=== PATIENT | female | born 1985 | race Caucasian/White ===

== ENCOUNTER 2016-08-18 09:00 | Emergency (ER) | payer SELFPAY ==
[2016-08-18] MEDS ORDERED: LIDOCAINE 5% PATCH TOP ONE (09:14)
[2016-08-18] MEDS ORDERED: HYDROCODONE/APAP 7.5/325MG TABLET PO ONE (09:14)
[2016-08-18] MEDS ORDERED: IBUPROFEN 600 MG TABLET PO ONE (09:14)
--- NOTE | 2016-08-18 09:20 | Emergency Department Record ---
History of Present Illness - General Chief Complaint: Ankle/Foot Injury Stated Complaint: FELL YESTERDAY/ANKLE PAIN Time Seen by Provider: 08/18/16 09:13 Source: Patient Mode of Arrival: Ambulatory Limitations: No limitations - History of Present Illness Initial Comments: 30 yo female presents after a fall at work yesterday at [employer] [place]. 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 She was walking between buildings and slipped on wet snow. She landed on her tailbone and right ankle. No head injury. She has had increased pain since then. No other specific areas of pain or injury. No foot pain, knee pain. No numbness or tingling. MD Complaint: Ankle injury, Other (back/tailbone) Onset/Timin -: Days(s) Injury: Ankle: Right Type of Injury: Eversion Place: Street/outdoors Severity: Severe Severity scale (1-10): 10 Improves With: Nothing Worsens With: Nothing Context: Fall Associated Symptoms: Able to partially bear weight - Related Data Home Medications Medication Instructions Recorded Confirmed Last Taken Norethindrone-E.estradiol-Iron 1 tab PO DAILY #28 08/14/16 08/18/16 Unknown [Willie Fe 1.5-30 Tablet] Allergies Allergy/AdvReac Type Severity Reaction Status Date / Time No Known Drug Allergies Allergy Verified 08/18/16 09:08 Travel Screening - Travel/Exposure Within Last 30 Days Have you traveled within the last 30 days?: No Review of Systems Constitutional: Denies: Chills, Fever, Malaise, Weakness Eyes: Denies: Eye discharge ENT: Denies: Congestion, Throat pain Respiratory: Denies: Cough Cardiovascular: Denies: Chest pain, Palpitations, Syncope Endocrine: Denies: Fatigue Gastrointestinal: Denies: Abdominal pain, Diarrhea, Nausea, Vomiting Genitourinary: Denies: Dysuria, Incontinence, Retention, Urgency Musculoskeletal: Reports: As per HPI, Arthralgia, Back pain, Joint swelling. Denies: Myalgia, Neck pain Skin: Denies: Bruising, Change in color, Rash Neurological: Denies: Headache Psychiatric: Denies: Anxiety Hematological/Lymphatic: Denies: Blood Clots, Easy bleeding, Easy bruising, Swollen glands Past Medical History - SOCIAL HISTORY Smoking Status: Never smoker Alcohol Use: None Drug Use: None - RESPIRATORY Hx Respiratory Disorders: No - CARDIOVASCULAR Hx Cardio Disorders: No - NEURO Hx Neuro Disorders: No - GI Hx GI Disorders: No - Hx Genitourinary Disorders: No - ENDOCRINE Hx Endocrine Disorders: No - MUSCULOSKELETAL Hx Musculoskeletal Disorders: Yes Comment:: degen. discs, spinal stenosis - PSYCH Hx Psych Problems: Yes Hx Depression: Yes - HEMATOLOGY/ONCOLOGY Hx Hematology/Oncology Disorders: No Family Medical History Any Significant Family History?: Yes Hx Diabetes: Father, Mother Hx HTN: Mother Physical Exam - General General Appearance: Alert, Oriented x3, Cooperative, No acute distress Limitations: No limitations - Head Head exam: Atraumatic, Normal inspection - Eye Eye exam: Normal appearance, PERRL. negative: Conjunctival injection, Periorbital swelling - ENT ENT exam: Normal exam, Mucous membranes moist Ear exam: Normal external inspection Nasal Exam: Normal inspection Mouth exam: Normal external inspection Teeth exam: Normal inspection Throat exam: Normal inspection - Neck Neck exam: Normal inspection, Full ROM. negative: Tenderness - Respiratory Respiratory exam: Normal lung sounds bilaterally. negative: Accessory muscle use, Respiratory distress, Rhonchi, Stridor, Wheezes - Cardiovascular Cardiovascular Exam: Regular rate, Normal rhythm, Normal heart sounds - GI/Abdominal GI/Abdominal exam: Soft. negative: Tenderness - Rectal Rectal exam: Deferred - exam: Deferred - Extremities Extremities exam: Full ROM, Joint swelling (lateral ankle), Normal capillary refill, Tenderness (lateral ankle). negative: Normal inspection, Calf tenderness, Pedal edema Image of Feet: 1 - lateral ankle tenderness, mild swelling, non tender and intact achilles, non tender 5th MT, no bruising visualized. - Back Back exam: Reports: Normal inspection, Full ROM, Muscle spasm, Tenderness (low midline coccyx), Vertebral tenderness. Denies: CVA tenderness (R), CVA tenderness (L), Paraspinal tenderness, Rash noted Image of Body Front/Back: 1 - tender, no bruising - Neurological Neurological exam: Alert, Normal gait, Oriented X3, Reflexes normal. negative: Motor sensory deficit - Psychiatric Psychiatric exam: Normal affect, Normal mood - Skin Skin exam: Dry, Intact, Normal color, Warm Course Vital Signs 08/18/16 09:04 Temperature 98.0 F Pulse Rate 67 Respiratory 20 Rate Blood Pressure 199/130 Pulse Ox 97 - Reevaluation(s) Reevaluation #1: The XR was reviewed The final report was negative for acute fracture or injury The ankle demonstrates STS only She will be provided crutches and brace and work not for today 08/18/16 10:04 Disposition Disposition: Discharge Clinical Impression: Coccyx contusion Qualifiers: Encounter type: initial encounter Qualified Code(s): S30.0XXA - Contusion of lower back and pelvis, initial encounter Ankle sprain Qualifiers: Encounter type: initial encounter Involved ligament of ankle: unspecified ligament Laterality: right Qualified Code(s): S93.401A - Sprain of unspecified ligament of right ankle, initial encounter Disposition: Home, Self-Care Condition: (1) Good Instructions: Ankle Sprain (ED), Coccyx Injury (ED) Additional Instructions: Ice to any sore tender or bruised areas Call your doctor for close follow up 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
== END 2016-08-18 10:19 | disposition home or self-care (01) ==
LOC: ER 09:00
DX: S93.401A Sprain of unspecified ligament of right ankle, initial encounter (principal); S30.0XXA Contusion of lower back and pelvis, initial encounter; W00.0XXA Fall on same level due to ice and snow, initial encounter; Y92.63 Factory as the place of occurrence of the external cause; Y99.0 Civilian activity done for income or pay
CPT/HCPCS: 72220; 99283; 99284

== ENCOUNTER 2017-10-07 21:53 | Emergency (ER) | payer SELFPAY ==
[2017-10-07] MEDS ORDERED: ASPIRIN 81 MG CHEWABLE TABLET PO ONE (22:11)
--- NOTE | 2017-10-07 22:12 | Emergency Department Record ---
History of Present Illness - General Chief Complaint: Chest Pain Stated Complaint: CHEST PAIN Time Seen by Provider: 10/07/17 22:07 Source: Patient Mode of Arrival: Ambulatory Limitations: No limitations - History of Present Illness Initial Comments: 31 yo female presents to ED for evaluation of chest pain to the left chest that began while walking out doors this evening. Patient reports that she "just didn 't feel right" after returning home, came to ED for evaluation. Patient denies fevers, chills, or history of DVT. Patient denies history of OCP's. Patient denies health problems at her baseline, and denies previous heart or lung problems. MD Complaint: Chest pain Onset: During exertion Pain Location: Left chest Pain Radiation: LUE Severity: Moderate Quality: Aching Consistency: Intermittent Improves With: Rest Worsens With: Nothing Treatments Prior to Arrival: None - Related Data On Oral Contraceptives: No Allergies Allergy/AdvReac Type Severity Reaction Status Date / Time No Known Drug Allergies Allergy Unverified 01/04/17 14:26 Review of Systems Constitutional: Denies: Chills, Fever, Malaise, Night sweats Eyes: Denies: Eye discharge, Eye pain ENT: Denies: Congestion, Ear pain, Epistaxis Respiratory: Denies: Cough, Dyspnea Cardiovascular: Denies: Chest pain, Dyspnea on exertion Endocrine: Denies: Fatigue, Heat or cold intolerance Gastrointestinal: Denies: Abdominal pain, Constipation, Nausea, Vomiting Genitourinary: Denies: Incontinence, Retention Musculoskeletal: Denies: Arthralgia, Back pain, Gout, Joint swelling Skin: Denies: Bruising, Change in color Neurological: Denies: Abnormal gait, Confusion, Headache, Seizure Psychiatric: Denies: Anxiety Hematological/Lymphatic: Denies: Anemia, Blood Clots Past Medical History - SOCIAL HISTORY Smoking Status: Never smoker Drug Use: None - RESPIRATORY Hx Respiratory Disorders: No - CARDIOVASCULAR Hx Cardio Disorders: No - NEURO Hx Neuro Disorders: No - GI Hx GI Disorders: No - Hx Genitourinary Disorders: No - ENDOCRINE Hx Endocrine Disorders: No - MUSCULOSKELETAL Hx Musculoskeletal Disorders: Yes Comment:: degen. discs, spinal stenosis - PSYCH Hx Psych Problems: Yes Hx Depression: Yes - HEMATOLOGY/ONCOLOGY Hx Hematology/Oncology Disorders: Yes Family Medical History Hx Diabetes: Father, Mother Hx HTN: Mother Physical Exam - General General Appearance: Alert, Oriented x3, Cooperative, Mild distress Limitations: No limitations - Head Head exam: Atraumatic, Normocephalic, Normal inspection Head exam detail: negative: Abrasion, Contusion, Sanchez's sign, General tenderness, Hematoma, Laceration - Eye Eye exam: Normal appearance. negative: Conjunctival injection, Periorbital swelling, Periorbital tenderness, Scleral icterus - ENT Ear exam: negative: Auricular hematoma, Auricular trauma Nasal Exam: negative: Active bleeding, Discharge, Dried blood, Foreign body Mouth exam: negative: Drooling, Laceration, Muffled voice, Tongue elevation - Neck Neck exam: Normal inspection. negative: Meningismus, Tenderness - Respiratory Respiratory exam: Normal lung sounds bilaterally. negative: Rales, Respiratory distress, Rhonchi, Stridor - Cardiovascular Cardiovascular Exam: Regular rate, Normal rhythm, Normal heart sounds - GI/Abdominal GI/Abdominal exam: Soft. negative: Rebound, Rigid, Tenderness - Rectal Rectal exam: Deferred - exam: Deferred - Extremities Extremities exam: Normal inspection. negative: Calf tenderness, Pedal edema, Tenderness - Back Back exam: Denies: CVA tenderness (R), CVA tenderness (L) - Neurological Neurological exam: Alert, Normal gait, Oriented X3 - Psychiatric Psychiatric exam: Normal affect, Normal mood - Skin Skin exam: Normal color. negative: Abrasion Type of lesion: negative: abrasion Course - Reevaluation(s) Reevaluation #1: 10/07/17 22:11 EKG: Sinus tachycardia Normal intervals, normal axis No acute ST-T wave changes Reevaluation #2: 10/07/17 22:41 Laboratory results were reviewed and are grossly unremarkable for an acute process. D-Dimer negative. CXR ordered. Patient's HEART score was calculated to be a 1. Will repeat Troponin at 3-hours to exclude acute myocardial injury. Reevaluation #3: 10/08/17 02:07 Repeat Troponin appears negative for myocardial injury. Patient appears stable for discharge at this time with return for any worsening of her symptoms. Medical Decision Making - Lab Data Result diagrams: 10/07/17 22:10 10/07/17 22:10 Disposition Disposition: Discharge Clinical Impression: Chest pain Qualifiers: Chest pain type: unspecified Qualified Code(s): R07.9 - Chest pain, unspecified Disposition: Home, Self-Care Condition: (2) Stable Instructions: Chest Pain (ED) Additional Instructions: Return to ED if your symptoms worsen or if you have any concerns. Follow-up with your family doctor in 3-5 days as directed. Forms: Patient Portal Access Time of Disposition: 02:07 Quality - Quality Measures Quality Measures: N/A - Blood Pressure Screening Does Patient Have Any of the Following: No Blood Pressure Classification: Hypertensive Reading Systolic Measurement: 169 Diastolic Measurement: 103 Screening for High Blood Pressure: < First Hypertensive BP, F/U Documented > [ G8950] First Hypertensive Follow-up Interventions: Referral to alternative/primary care provider.
[2017-10-07 22:17] LABS: BASO % 0.4 % (0-6); EOS % 1.7 % (0-6); GRAN % 55.7 % (47-80); HEMATOCRIT 37.6 % (35.0-47.0); HEMOGLOBIN 12.7 gm/dl (11.6-16.0); LYMPH % 34.3 % (16-45); MEAN CELL VOLUME 89.3 fl (81-97); MEAN CORPUSCULAR HEMOGLOBIN 30.2 pg (27-33); MEAN CORPUSCULAR HGB CONC 33.8 g/dl (32-36); MEAN PLATELET VOLUME 9.1 fl (7.4-10.4); MONO % 7.9 % (0-9); PLATELET COUNT 336 K/uL (130-400); RED BLOOD COUNT 4.21 M/uL (3.80-5.40); RED CELL DISTRIBUTION WIDTH 12.3 % (11.5-14.5); WHITE BLOOD COUNT W/O DIFF 8.3 K/uL (4.2-12.2)
[2017-10-07 22:30] LABS: BLOOD UREA NITROGEN 10 mg/dL (6-20); CREATININE 0.6 mg/dL (0.5-0.9); EST GLOMERULAR FILTRATION RATE > 60 mL/min
[2017-10-07 22:31] LABS: TOTAL PROTEIN 7.3 g/dL (6.6-8.7)
[2017-10-07 22:33] LABS: GLUCOSE,RANDOM 134 mg/dL (74-109)
[2017-10-07 22:36] LABS: ALB/GLOB RATIO 1.5 (1.1-1.8); ALBUMIN 4.4 g/dL (4.0-5.0); ALKALINE PHOSPHATASE 87 U/L (35-104); ALT/SGPT 13 U/L (<33); AST/SGOT 15 U/L (10.0-35.0)
--- NOTE | 2017-10-10 07:42 | RADIOLOGY REPORT ---
DATE: 10/07/2017. EXAM: TWO-VIEW, CHEST. HISTORY: Difficulty breathing. TECHNIQUE: Frontal and lateral views of the chest were performed. FINDINGS: Heart size is normal. Lung pierce are clear. Osseous structures are normal. IMPRESSION: NEGATIVE CHEST EXAMINATION. JOB NUMBER: [id number] MTDD
== END 2017-10-08 02:26 | disposition home or self-care (01) ==
LOC: ER 21:53
DX: R07.9 Chest pain, unspecified (principal); R20.0 Anesthesia of skin
CPT/HCPCS: 71046; 80053; 84484; 85025; 85379; 93005; 93010; 99284

== ENCOUNTER 2018-08-31 23:52 | Emergency (ER) | payer BC ==
[2018-09-01] MEDS ORDERED: IBUPROFEN 400 MG TABLET PO ONE (00:15)
--- NOTE | 2018-09-01 00:21 | Emergency Department Record ---
History of Present Illness - General Chief Complaint: Chest Pain Stated Complaint: CHEST PAIN Time Seen by Provider: 09/01/18 00:07 Source: Patient Mode of Arrival: Ambulatory Limitations: No limitations - History of Present Illness Initial Comments: The patient is here due to a sharp stabbing L sided retrosternal CP that began 45 minutes ago. The pain is not associated with SOB, CHESTER, sweating, nausea, or exertion. The pain is worse with bending and twisting. She denies any hx of any CP with exertion and any RODRIGUEZ. The patient has had a similar problem in the past with anxiety. She has no cardiac risk factors but does take OCP's. Onset/Timin -: Minutes(s) Onset: During rest Pain Location: Substernal Severity: Moderate Severity scale (1-10): 7 Quality: Sharp Consistency: Intermittent Improves With: Nothing Worsens With: Nothing - Related Data Allergies Allergy/AdvReac Type Severity Reaction Status Date / Time No Known Drug Allergies Allergy Verified 08/31/18 23:56 Travel Screening - Travel/Exposure Within Last 30 Days Have you traveled within the last 30 days?: No - Travel/Exposure Within Last Year Have you traveled outside the [place] in the last year?: No - Additonal Travel Details Have you been exposed to anyone with a communicable illness?: No - Travel Symptoms Symptom Screening: None Review of Systems Constitutional: Denies: Chills, Fever Eyes: Denies: Eye discharge ENT: Denies: Congestion Respiratory: Denies: Cough, Dyspnea Cardiovascular: Reports: Chest pain. Denies: Arrhythmia, Dyspnea on exertion Endocrine: Denies: Fatigue Gastrointestinal: Denies: Nausea Genitourinary: Denies: Dysuria Musculoskeletal: Denies: Arthralgia Skin: Denies: Bruising Past Medical History - SOCIAL HISTORY Smoking Status: Never smoker Alcohol Use: None Drug Use: Occasional Drug Use Detail:: Marijuana - RESPIRATORY Hx Respiratory Disorders: No - CARDIOVASCULAR Hx Cardio Disorders: No - NEURO Hx Neuro Disorders: No - GI Hx GI Disorders: No - Hx Genitourinary Disorders: No - ENDOCRINE Hx Endocrine Disorders: No - MUSCULOSKELETAL Hx Musculoskeletal Disorders: Yes Comment:: degen. discs, spinal stenosis - PSYCH Hx Psych Problems: Yes Hx Depression: Yes - HEMATOLOGY/ONCOLOGY Hx Hematology/Oncology Disorders: Yes Family Medical History Any Significant Family History?: Yes Hx Diabetes: Father, Mother Hx HTN: Mother Physical Exam - General General Appearance: Alert, Oriented x3, Cooperative, No acute distress - Head Head exam: Atraumatic, Normocephalic, Normal inspection - Eye Eye exam: Normal appearance, PERRL, EOMI - ENT Throat exam: Normal inspection. negative: Tonsillar erythema, Tonsillar exudate - Neck Neck exam: Normal inspection, Full ROM. negative: Tenderness - Respiratory Respiratory exam: Normal lung sounds bilaterally, Chest wall tenderness (The L CP is VERY reproducible to palpation over the L upper chest wall.). negative: Respiratory distress - Cardiovascular Cardiovascular Exam: Regular rate, Normal rhythm, Normal heart sounds. negative : Diastolic murmur, Systolic murmur - GI/Abdominal GI/Abdominal exam: Soft, Normal bowel sounds. negative: Tenderness - Extremities Extremities exam: Normal inspection, Full ROM, Normal capillary refill. negative: Calf tenderness, Pedal edema, Tenderness Image of Full Body: 1 - Area of pain and reproducible tenderness. - Back Back exam: Reports: Normal inspection - Neurological Neurological exam: Alert, Normal gait. negative: Abnormal gait, Motor sensory deficit Course Vital Signs 08/31/18 23:59 Temperature 98.2 F Pulse Rate 80 Respiratory 20 Rate Pulse Ox 97 - Reevaluation(s) Reevaluation #1: The patient is feeling much better after the Motrin. The pain has resolved and she is resting comfortably. Due to the fact she has had this in the past and diagnosed with anxiety, along with her workup being very normal, I strongly doubt any serious cardiac pathology as to the cause of her symptoms. She has a Heart Score of 0 and no cardiac risk factors so I do feel it is very safe for the patient to F/U with her PCP for recheck. 09/01/18 01:19 Medical Decision Making - Data Complexity MDM Data: Labs Ordered and/or Reviewed, X-Ray Ordered and/or Reviewed, EKG Ordered and/or Reviewed - Lab Data Result diagrams: 09/01/18 00:25 09/01/18 00:25 - EKG Data -: EKG Interpreted by Me EKG: No Acute Changes, Normal EKG - Radiology Data Radiology results: Report reviewed (CXR: Neg.) Disposition Disposition: Discharge Clinical Impression: Anxiety Disposition: Home, Self-Care Condition: (2) Stable Instructions: Generalized Anxiety Disorder (ED) Additional Instructions: Please take Motrin or Tylenol for pain and please see your family doctor for recheck later this week. Return to the ER for any worsening symptoms. Forms: Patient Portal Access Time of Disposition: 01:23 Quality - Quality Measures Quality Measures: N/A - Blood Pressure Screening View Details: Yes Does Patient Have Any of the Following: No Blood Pressure Classification: Pre-Hypertensive BP Reading Systolic Measurement: 129 Diastolic Measurement: 88 Screening for High Blood Pressure: < Pre-Hypertensive BP, F/U Documented > [ G8950] Pre-Hypertensive Follow-up Interventions: Referral to alternative/primary care provider.
[2018-09-01 00:38] LABS: BASO % 0.9 % (0-6); EOS % 1.8 % (0-6); GRAN % 50.7 % (47-80); HEMATOCRIT 39.2 % (35.0-47.0); HEMOGLOBIN 13.1 gm/dl (11.6-16.0); LYMPH % 37.4 % (16-45); MEAN CELL VOLUME 85.6 fl (81-97); MEAN CORPUSCULAR HEMOGLOBIN 28.6 pg (27-33); MEAN CORPUSCULAR HGB CONC 33.4 g/dl (32-36); MEAN PLATELET VOLUME 9.3 fl (7.4-10.4); MONO % 9.2 % (0-9); PLATELET COUNT 390 K/uL (130-400); RED BLOOD COUNT 4.58 M/uL (3.80-5.40); RED CELL DISTRIBUTION WIDTH 12.6 % (11.5-14.5); WHITE BLOOD COUNT W/O DIFF 6.8 K/uL (4.2-12.2)
[2018-09-01 00:47] LABS: BLOOD UREA NITROGEN 12 mg/dL (6-20); CREATININE 0.5 mg/dL (0.5-0.9); EST GLOMERULAR FILTRATION RATE > 60 mL/min
[2018-09-01 00:48] LABS: TOTAL PROTEIN 6.9 g/dL (6.6-8.7)
[2018-09-01 00:50] LABS: GLUCOSE,RANDOM 96 mg/dL (74-109)
[2018-09-01 00:53] LABS: ALB/GLOB RATIO 1.6 (1.1-1.8); ALBUMIN 4.2 g/dL (4.0-5.0); ALKALINE PHOSPHATASE 71 U/L (35-104); ALT/SGPT 13 U/L (<33); AST/SGOT 14 U/L (10.0-35.0); CREATINE PHOSPHOKINASE 73 U/L (26-192)
[2018-09-01 00:55] LABS: CKMB 1.1 ng/mL (<3.77)
== END 2018-09-01 01:46 | disposition home or self-care (01) ==
LOC: ER 23:52
DX: F41.1 Generalized anxiety disorder (principal); R07.2 Precordial pain
CPT/HCPCS: 71046; 80053; 81025; 82550; 82553; 84484; 85025; 85379; 93005; 93010; 99284